=== PATIENT | male | born 1985 | race Caucasian/White ===

== ENCOUNTER 2020-10-06 21:43 | Emergency (ER) | payer SELFPAY ==
[2020-10-06 21:47] VITALS: BP 150/81; PULSE 62; TEMP 98.2
--- NOTE | 2020-10-06 22:32 | ED ---
General Adult HPI - General Chief complaint: Recheck/Abnormal Lab/Rx Stated complaint: Covid Test Time Seen by Provider: 10/06/20 21:51 Source: patient Mode of arrival: ambulatory Limitations: no limitations - History of Present Illness Initial comments: 35-year-old female presents to the emergency department with a chief complaint of Covid testing. Patient is also requesting a PCR test. Denies any symptoms. No other complaints. - Related Data Home Medications Medication Instructions Recorded Confirmed No Known Home Medications 10/06/20 10/06/20 Allergies Allergy/AdvReac Type Severity Reaction Status Date / Time No Known Allergies Allergy Verified 10/06/20 21:47 Review of Systems ROS Statement: Those systems with pertinent positive or pertinent negative responses have been documented in the HPI. ROS Other: All systems not noted in ROS Statement are negative. Past Medical History Past Medical History: No Reported History History of Any Multi-Drug Resistant Organisms: None Reported Additional Past Surgical History / Comment(s): septum repair Past Psychological History: No Psychological Hx Reported Smoking Status: Never smoker Past Alcohol Use History: None Reported Past Drug Use History: None Reported General Exam Limitations: no limitations General appearance: alert, in no apparent distress Head exam: Present: atraumatic, normocephalic, normal inspection Eye exam: Present: normal appearance, PERRL, EOMI Pupils: Present: normal accommodation ENT exam: Present: normal exam, normal oropharynx, mucous membranes moist Neck exam: Present: normal inspection, full ROM Respiratory exam: Present: normal lung sounds bilaterally. Absent: respiratory distress Cardiovascular Exam: Present: regular rate, normal rhythm, normal heart sounds Extremities exam: Present: normal inspection, full ROM Back exam: Present: normal inspection, full ROM Neurological exam: Present: alert, oriented X3, normal gait Psychiatric exam: Present: normal affect, normal mood Skin exam: Present: warm, dry, intact, normal color Course Vital Signs 10/06/20 10/06/20 21:43 22:10 Temperature 98.2 F Pulse Rate 62 Respiratory 20 18 Rate Blood Pressure 150/81 O2 Sat by Pulse 95 Oximetry Medical Decision Making - Medical Decision Making Patient here for coronavirus testing. PCR negative. Patient was given results. Case discussed with - Lab Data Lab Results 10/06/20 Range/Units 22:05 Coronavirus (PCR) Not Detected (Not Detectd) Disposition Clinical Impression: Lab test negative for COVID-19 virus Disposition: HOME SELF-CARE Condition: Stable Instructions (If sedation given, give patient instructions): Coronavirus Disease 2019 (COVID-19) Additional Instructions: Please return to the Emergency Department if symptoms worsen or any other concerns. Is patient prescribed a controlled substance at d/c from ED?: No Referrals: None,Stated [Primary Care Provider] - 1-2 days Time of Disposition: 22:58
[2020-10-06 22:42] VITALS: RESP 18
== END 2020-10-06 23:03 | disposition home or self-care (01) ==
LOC: EC 21:43
DX: Z20.822 Contact with and (suspected) exposure to COVID-19 (principal)
CPT/HCPCS: 87635; 99282; 99283

== ENCOUNTER 2021-01-19 00:38 | Emergency (ER) | payer SELFPAY ==
[2021-01-19 00:51] VITALS: BP 130/73; PULSE 51; RESP 18; TEMP 97.9
--- NOTE | 2021-01-19 01:26 | ED ---
General Adult HPI - General Chief complaint: Recheck/Abnormal Lab/Rx Stated complaint: COVID Test Time Seen by Provider: 01/19/21 00:59 Source: patient Mode of arrival: ambulatory Limitations: no limitations - History of Present Illness Initial comments: 35-year-old male presenting to the emergency room for a chief complaint of covid test. Patient is going to [place] and needs a carotid test before [place] to [place]. Patient denies any sick symptoms or exposures.Patient has no other complaints at this time including shortness of breath, chest pain, abdominal pain, nausea or vomiting, headache, or visual changes. - Related Data Home Medications Medication Instructions Recorded Confirmed No Known Home Medications 10/06/20 10/06/20 Allergies Allergy/AdvReac Type Severity Reaction Status Date / Time No Known Allergies Allergy Verified 01/19/21 00:51 Review of Systems ROS Statement: Those systems with pertinent positive or pertinent negative responses have been documented in the HPI. ROS Other: All systems not noted in ROS Statement are negative. Past Medical History Past Medical History: No Reported History History of Any Multi-Drug Resistant Organisms: None Reported Additional Past Surgical History / Comment(s): septum repair Past Psychological History: No Psychological Hx Reported Smoking Status: Never smoker Past Alcohol Use History: None Reported Past Drug Use History: None Reported General Exam Limitations: no limitations General appearance: alert, in no apparent distress Head exam: Present: atraumatic, normocephalic, normal inspection Eye exam: Present: normal appearance, PERRL, EOMI ENT exam: Present: normal exam, mucous membranes moist Neck exam: Present: normal inspection, full ROM Respiratory exam: Absent: respiratory distress Course Vital Signs 01/19/21 00:45 Temperature 97.9 F Pulse Rate 51 L Respiratory 18 Rate Blood Pressure 130/73 O2 Sat by Pulse 98 Oximetry Medical Decision Making - Medical Decision Making coronavirus test is negative. Patient can be discharged home to follow up with primary care. - Lab Data Lab Results 01/19/21 Range/Units 00:53 Coronavirus (PCR) Not Detected (Not Detectd) Disposition Clinical Impression: Lab test negative for COVID-19 virus Disposition: HOME SELF-CARE Condition: Good Instructions (If sedation given, give patient instructions): Coronavirus Disease 2019 (COVID-19) Is patient prescribed a controlled substance at d/c from ED?: No Referrals: Nonstaff,Physician [Primary Care Provider] - 1-2 days Time of Disposition: 01:26
== END 2021-01-19 01:31 | disposition home or self-care (01) ==
LOC: EC 00:38
DX: Z11.52 Encounter for screening for COVID-19 (principal); Z20.822 Contact with and (suspected) exposure to COVID-19
CPT/HCPCS: 87635; 99282